=== PATIENT | female | born 1990 | race Caucasian/White ===

== ENCOUNTER 2020-05-16 12:49 | Inpatient (IN) | payer MEDICAID ==
[~2020-05-16] VITALS: Ht 170.2 cm; Wt 64.6 kg
[2020-05-16 13:40] LABS: BASOPHILS % (AUTO) 0.9 % (0.0-2.0); EOSINOPHILS % (AUTO) 1.7 % (1.0-6.0); HEMATOCRIT 37.3 % (36-46); HEMOGLOBIN 12.7 g/dL (12.0-16.0); LYMPHOCYTES # (AUTO) 2.4 K/uL (1.0-4.8); LYMPHOCYTES % (AUTO) 37.5 % (22.0-44.0); MEAN CORPUSCULAR HEMOGLOBIN 29.6 pg (26.0-34.0); MEAN CORPUSCULAR HGB CONC 34.2 G/dL (31.0-37.0); MEAN CORPUSCULAR VOLUME 87 fL (80-100); MONOCYTES # (AUTO) 0.4 K/uL (0.1-1.0); MONOCYTES % (AUTO) 5.8 % (2.0-9.0); NEUTROPHILS # (AUTO) 3.5 K/uL (1.8-7.7); NEUTROPHILS % (AUTO) 54.1 % (40.0-70.0); PLATELET COUNT (AUTO) 257 K/uL (150-450); RED BLOOD CELL COUNT(AUTO) 4.31 MIL/uL (4.00-5.20); RED CELL DISTRIBUTION WIDTH 13.2 % (11.5-14.5)
[2020-05-16 13:51] LABS: AMPHET/METH SCREEN,URINE POSITIVE (NEGATIVE); BARBITURATE SCREEN, URINE NEGATIVE (NEGATIVE); BENZODIAZEPINES SCREEN,URINE NEGATIVE (NEGATIVE); CANNABINOID SCREEN,URINE NEGATIVE (NEGATIVE); COCAINE SCREEN,URINE NEGATIVE (NEGATIVE); METHADONE SCREEN, URINE NEGATIVE (NEGATIVE); OPIATE SCREEN,URINE POSITIVE (NEGATIVE)
[2020-05-16 13:51] LABS: ANION GAP 6 mmol/L (8-16); CALCIUM, TOTAL 8.8 mg/dL (8.8-10.5); CARBON DIOXIDE 28 mmol/L (22-29); CHLORIDE 104 mmol/L (98-107); CREATININE 0.79 mg/dL (0.60-1.30); GLOMERULAR FILTR. RATE CALC > 60 mL/min (>60); GLUCOSE,RANDOM 111 mg/dL (70-110); POTASSIUM 3.6 mmol/L (3.5-5.1); SODIUM SERUM 138 mmol/L (136-145); UREA NITROGEN, BLOOD 12 mg/dL (7-18)
[2020-05-16 13:52] LABS: PHENCYCLIDINE SCREEN,URINE NEGATIVE (NEGATIVE)
[2020-05-16 13:56] LABS: ACETAMINOPHEN 25 mcg/mL (10-30); ALANINE AMINOTRANSFERASE 24 U/L (12-78); ALBUMIN 3.6 g/dL (3.4-5.0); ALKALINE PHOSPHATASE 54 U/L (46-116); ASPARTATE AMINOTRANSFERASE 15 U/L (15-37); BILIRUBIN,TOTAL 0.4 mg/dL (0.1-1.0)
[2020-05-16 14:19] LABS: SALICYLATE 0.4 mg/dL (2.8-20.0)
[2020-05-16 18:45] LABS: COVID AG,FIA SOURCE NASOPHARYNGEAL
[2020-05-16] MEDS ORDERED: ZOLPIDEM TARTRATE 10 MG TABLET PO PRN (19:00)
[2020-05-16] MEDS ORDERED: ONDANSETRON HCL 4 MG/2 ML VIAL IVP ONE (21:45)
[2020-05-17 01:55] VITALS: BP 120/82
[2020-05-17] MEDS: LORazepam 2 MG TABLET PO PRN (01:58)
[2020-05-17 06:50] LABS: CHOL/HDL RATIO 2.6 (3.9-5.7)
[2020-05-17] MEDS ORDERED: MAGNESIUM HYDROXIDE SUSPENSION 30 ML UDCUP PO PRN (07:15)
[2020-05-17] MEDS ORDERED: IBUPROFEN 400 MG TABLET PO PRN (07:15)
[2020-05-17] MEDS ORDERED: ALBUTEROL SULFATE HFA 90 MCG/PUFF 8 GM INHALER IH PRN (07:15)
[2020-05-17] MEDS ORDERED: PETROLATUM,WHITE 28 GM JELLY TP PRN (07:15)
[2020-05-17] MEDS ORDERED: DOCUSATE SODIUM 100 MG CAPSULE PO PRN (07:15)
[2020-05-17] MEDS ORDERED: MAG HYDROX/AL HYDROX/SIMETH ES 30 ML SUSPENSION UDCUP PO PRN (07:15)
[2020-05-17] MEDS ORDERED: LOPERAMIDE HCL 2 MG CAPSULE PO PRN (07:15)
[2020-05-17] MEDS ORDERED: GuaiFENesin/D-METHORPHAN [SUGAR-FREE] 200-20MG/10 ML SYRUP UDCUP PO PRN (07:15)
[2020-05-17] MEDS ORDERED: NICOTINE 14 MG/24 HOUR PATCH TD PRN (07:15)
[2020-05-17] MEDS ORDERED: ACETAMINOPHEN 325 MG TABLET PO PRN (07:15)
[2020-05-17] MEDS ORDERED: CloNIDine HCL 0.1 MG TABLET PO PRN (07:15)
[2020-05-17] MEDS ORDERED: ONDANSETRON HCL 4 MG TABLET PO PRN (07:15)
[2020-05-17 09:15] VITALS: BP 106/62
[2020-05-17 16:47] VITALS: BP 103/57
[2020-05-17] MEDS ORDERED: LORazepam 2 MG/ML VIAL ONE (18:34)
[2020-05-17] MEDS ORDERED: HALOPERIDOL LACTATE 5 MG/ML VIAL ONE (18:34)
[2020-05-17] MEDS ORDERED: DiphenhydrAMINE HCL 50 MG/ML VIAL ONE (18:34)
[2020-05-17] MEDS ORDERED: DiphenhydrAMINE HCL 50 MG/ML VIAL IM ONE (18:45)
[2020-05-17] MEDS ORDERED: HALOPERIDOL LACTATE 5 MG/ML VIAL IM ONE (18:45)
[2020-05-17] MEDS ORDERED: LORazepam 2 MG/ML VIAL IM ONE (18:45)
[2020-05-18] MEDS: SERTRALINE HCL 50 MG TABLET PO SCH (10:41)
[2020-05-18] MEDS: LORazepam 2 MG TABLET PO PRN (12:39)
[2020-05-19] MEDS: SERTRALINE HCL 50 MG TABLET PO SCH (08:10)
[2020-05-19] MEDS: LORazepam 2 MG TABLET PO PRN (08:10)
[2020-05-19] MEDS ORDERED: HALOPERIDOL LACTATE 5 MG/ML VIAL ONE (08:21)
[2020-05-19] MEDS ORDERED: DiphenhydrAMINE HCL 50 MG/ML VIAL ONE (08:21)
[2020-05-19] MEDS ORDERED: HALOPERIDOL LACTATE 5 MG/ML VIAL IM ONE (08:30)
[2020-05-19] MEDS ORDERED: LORazepam 2 MG/ML VIAL IM ONE (08:30)
[2020-05-19] MEDS ORDERED: DiphenhydrAMINE HCL 50 MG/ML VIAL IM ONE (08:30)
[2020-05-19 10:35] VITALS: BP 115/64
[2020-05-20] MEDS: LORazepam 2 MG TABLET PO PRN ×2 (07:37→19:06)
[2020-05-20] MEDS: SERTRALINE HCL 50 MG TABLET PO SCH (08:06)
[2020-05-20 08:47] VITALS: BP 122/65
[2020-05-20 16:21] VITALS: BP 104/65
[2020-05-21 08:00] VITALS: BP 101/64
[2020-05-21] MEDS: SERTRALINE HCL 50 MG TABLET PO SCH (08:34)
[2020-05-21] MEDS: HALOPERIDOL 5 MG TABLET PO PRN ×2 (08:34→15:05)
[2020-05-21] MEDS: LORazepam 2 MG TABLET PO PRN ×2 (08:34→15:05)
[2020-05-21 16:12] VITALS: BP 105/65
[2020-05-22 08:00] VITALS: BP 104/62
[2020-05-22] MEDS: HALOPERIDOL 5 MG TABLET PO PRN (08:09)
[2020-05-22] MEDS: SERTRALINE HCL 50 MG TABLET PO SCH (08:09)
[2020-05-22] MEDS: LORazepam 2 MG TABLET PO PRN ×2 (08:09→17:40)
[2020-05-22 17:50] VITALS: BP 109/76
[2020-05-23] MEDS: LORazepam 2 MG TABLET PO PRN ×3 (00:34→17:57)
[2020-05-23 08:37] VITALS: BP 94/64
[2020-05-23] MEDS: HALOPERIDOL 5 MG TABLET PO PRN (09:20)
[2020-05-23] MEDS: SERTRALINE HCL 50 MG TABLET PO SCH (09:20)
[2020-05-23 16:53] VITALS: BP 99/64
[2020-05-23 17:56] VITALS: BP 110/70
[2020-05-24 08:00] VITALS: BP 116/66
[2020-05-24] MEDS: SERTRALINE HCL 50 MG TABLET PO SCH (08:51)
[2020-05-24] MEDS: LORazepam 2 MG TABLET PO PRN (08:52)
[2020-05-24] MEDS ORDERED: SERT50TA12 PO (10:11)
== END 2020-05-24 12:15 | disposition home or self-care (01) | DRG 751 ==
LOC: EMS 12:51 → 3EI 18:48 → 3EC 05-17 18:46
DX: F33.2 Major depressive disorder, recurrent severe without psychotic features (principal); F60.3 Borderline personality disorder; Z91.5 Personal history of self-harm; F15.10 Other stimulant abuse, uncomplicated; F11.10 Opioid abuse, uncomplicated; F19.10 Other psychoactive substance abuse, uncomplicated; I95.9 Hypotension, unspecified; Z81.1 Family history of alcohol abuse and dependence; T50.902A Poisoning by unspecified drugs, medicaments and biological substances, intentional self-harm, initial encounter; Z79.899 Other long term (current) drug therapy; Y92.89 Other specified places as the place of occurrence of the external cause; Z03.818 Encounter for observation for suspected exposure to other biological agents ruled out
CPT/HCPCS: 87426; 93005; 99291; G0480; G0481; J1200; J1630; J2060; J2405

== ENCOUNTER 2021-03-21 02:50 | Emergency (ER) | payer MEDICAID ==
[~2021-03-21] VITALS: Ht 162.6 cm; Wt 65.9 kg
[~2021-03-21 02:50] MED LIST: SERT-439 PO
[2021-03-21] MEDS ORDERED: LORazepam 2 MG TABLET PO ONE (03:45)
[2021-03-21 04:20] VITALS: BP 105/53
[2021-03-21 04:32] LABS: COVID AG,FIA SOURCE NASOPHARYNGEAL
== END 2021-03-21 04:47 ==
LOC: EMS 02:51
DX: S09.90XA Unspecified injury of head, initial encounter (principal); R45.851 Suicidal ideations; F32.9 Major depressive disorder, single episode, unspecified; Z20.822 Contact with and (suspected) exposure to COVID-19; W22.8XXA Striking against or struck by other objects, initial encounter; Y93.89 Activity, other specified; Y92.89 Other specified places as the place of occurrence of the external cause; Y99.8 Other external cause status
CPT/HCPCS: 99284

== ENCOUNTER 2021-05-05 11:24 | Inpatient (IN) | payer MEDICAID ==
[~2021-05-05] VITALS: Ht 162.6 cm; Wt 70.3 kg
[2021-05-05] MEDS ORDERED: GABA-1216 PO (13:30)
[2021-05-05 14:29] LABS: AMPHET/METH SCREEN,URINE POSITIVE (NEGATIVE); BARBITURATE SCREEN, URINE NEGATIVE (NEGATIVE); BENZODIAZEPINES SCREEN,URINE NEGATIVE (NEGATIVE); CANNABINOID SCREEN,URINE NEGATIVE (NEGATIVE); COCAINE SCREEN,URINE NEGATIVE (NEGATIVE); METHADONE SCREEN, URINE NEGATIVE (NEGATIVE); OPIATE SCREEN,URINE NEGATIVE (NEGATIVE)
[2021-05-05 14:30] LABS: PHENCYCLIDINE SCREEN,URINE NEGATIVE (NEGATIVE)
[2021-05-05 14:32] LABS: BASOPHILS % (AUTO) 0.7 % (0.0-2.0); EOSINOPHILS % (AUTO) 0.3 % (1.0-6.0); HEMATOCRIT 40.5 % (36-46); HEMOGLOBIN 13.1 g/dL (12.0-16.0); LYMPHOCYTES # (AUTO) 2.3 K/uL (1.0-4.8); LYMPHOCYTES % (AUTO) 28.2 % (22.0-44.0); MEAN CORPUSCULAR HEMOGLOBIN 28.8 pg (26.0-34.0); MEAN CORPUSCULAR HGB CONC 32.4 G/dL (31.0-37.0); MEAN CORPUSCULAR VOLUME 89 fL (80-100); MONOCYTES # (AUTO) 0.8 K/uL (0.1-1.0); MONOCYTES % (AUTO) 10.2 % (2.0-9.0); NEUTROPHILS # (AUTO) 4.9 K/uL (1.8-7.7); NEUTROPHILS % (AUTO) 60.6 % (40.0-70.0); PLATELET COUNT (AUTO) 247 K/uL (150-450); RED BLOOD CELL COUNT(AUTO) 4.56 MIL/uL (4.00-5.20); RED CELL DISTRIBUTION WIDTH 14.8 % (11.5-14.5)
[2021-05-05 14:56] LABS: ANION GAP 11 mmol/L (8-16); CALCIUM, TOTAL 8.9 mg/dL (8.8-10.5); CARBON DIOXIDE 26 mmol/L (22-29); CHLORIDE 106 mmol/L (98-107); CREATININE 0.78 mg/dL (0.60-1.30); GLOMERULAR FILTR. RATE CALC > 60 mL/min (>60); GLUCOSE,RANDOM 82 mg/dL (70-110); POTASSIUM 3.9 mmol/L (3.5-5.1); SODIUM SERUM 143 mmol/L (136-145); UREA NITROGEN, BLOOD 14 mg/dL (7-18)
[2021-05-05 15:02] LABS: ALANINE AMINOTRANSFERASE 32 U/L (12-78); ALBUMIN 4.3 g/dL (3.4-5.0); ALKALINE PHOSPHATASE 57 U/L (46-116); ASPARTATE AMINOTRANSFERASE 26 U/L (15-37); BILIRUBIN,TOTAL 0.5 mg/dL (0.1-1.0); TOTAL PROTEIN, SERUM 7.8 g/dL (6.4-8.2)
[2021-05-05 17:08] LABS: COVID AG,FIA SOURCE NASOPHARYNGEAL
[2021-05-05 19:41] VITALS: BP 106/59
[2021-05-05] MEDS: LORazepam 2 MG TABLET PO PRN (22:04)
[2021-05-06 00:59] VITALS: BP 104/62
[2021-05-06 08:19] LABS: CHOL/HDL RATIO 2.3 (3.9-5.7)
[2021-05-06 08:23] VITALS: BP 100/60
[2021-05-06] MEDS: LORazepam 2 MG TABLET PO PRN (09:30)
[2021-05-06] MEDS ORDERED: ACETAMINOPHEN 325 MG TABLET PO PRN (11:00)
[2021-05-06] MEDS ORDERED: LOPERAMIDE HCL 2 MG CAPSULE PO PRN (11:00)
[2021-05-06] MEDS ORDERED: GuaiFENesin/D-METHORPHAN [SUGAR-FREE] 200-20MG/10 ML SYRUP UDCUP PO PRN (11:00)
[2021-05-06] MEDS ORDERED: MAGNESIUM HYDROXIDE SUSPENSION 30 ML UDCUP PO PRN (11:00)
[2021-05-06] MEDS ORDERED: MAG HYDROX/AL HYDROX/SIMETH ES 30 ML SUSPENSION UDCUP PO PRN (11:00)
[2021-05-06] MEDS ORDERED: PETROLATUM,WHITE 28 GM JELLY TP PRN (11:00)
[2021-05-06] MEDS ORDERED: NICOTINE 14 MG/24 HOUR PATCH TD PRN (11:00)
[2021-05-06] MEDS ORDERED: ALBUTEROL SULFATE HFA 90 MCG/PUFF 8 GM INHALER IH PRN (11:00)
[2021-05-06] MEDS ORDERED: ONDANSETRON HCL 4 MG TABLET PO PRN (11:00)
[2021-05-06] MEDS ORDERED: IBUPROFEN 400 MG TABLET PO PRN (11:00)
[2021-05-06] MEDS ORDERED: CloNIDine HCL 0.1 MG TABLET PO PRN (11:00)
[2021-05-06] MEDS ORDERED: DOCUSATE SODIUM 100 MG CAPSULE PO PRN (11:00)
[2021-05-06] MEDS: HALOPERIDOL 5 MG TABLET PO PRN (12:23)
[2021-05-06] MEDS ORDERED: HydrOXYzine PAMOATE 50 MG CAPSULE PO PRN (13:15)
[2021-05-06] MEDS: SERTRALINE HCL 50 MG TABLET PO SCH (14:23)
[2021-05-06 15:13] VITALS: BP 110/60
[2021-05-06 16:22] VITALS: BP 113/66
[2021-05-07 00:08] VITALS: BP 113/75
[2021-05-07 08:08] VITALS: BP 105/65
[2021-05-07] MEDS: SERTRALINE HCL 50 MG TABLET PO SCH (08:11)
[2021-05-07] MEDS: LORazepam 2 MG TABLET PO PRN ×2 (08:11→14:14)
[2021-05-07 09:01] VITALS: BP 108/65
[2021-05-07] MEDS ORDERED: HALOPERIDOL LACTATE 5 MG/ML VIAL IM ONE (15:45)
[2021-05-07] MEDS ORDERED: LORazepam 2 MG/ML VIAL IM ONE (15:45)
[2021-05-07] MEDS ORDERED: DiphenhydrAMINE HCL 50 MG/ML VIAL IM ONE (15:45)
[2021-05-08] MEDS: DIVALPROEX SODIUM 500 MG DR TABLET PO SCH ×2 (09:43→16:14)
[2021-05-08] MEDS: SERTRALINE HCL 50 MG TABLET PO SCH (09:43)
[2021-05-08] MEDS ORDERED: DiphenhydrAMINE HCL 50 MG/ML VIAL IM ONE (16:45)
[2021-05-08] MEDS ORDERED: HALOPERIDOL LACTATE 5 MG/ML VIAL IM ONE (16:45)
[2021-05-08] MEDS ORDERED: DiphenhydrAMINE HCL 50 MG/ML VIAL ONE (16:46)
[2021-05-08] MEDS ORDERED: HALOPERIDOL LACTATE 5 MG/ML VIAL ONE (16:46)
[2021-05-08] MEDS: LORazepam 2 MG TABLET PO PRN (16:52)
[2021-05-08] MEDS: HALOPERIDOL 5 MG TABLET PO PRN (16:52)
[2021-05-09 06:53] VITALS: BP 100/64
[2021-05-09] MEDS: SERTRALINE HCL 50 MG TABLET PO SCH (09:35)
[2021-05-09] MEDS: DIVALPROEX SODIUM 500 MG DR TABLET PO SCH ×2 (09:35→20:19)
[2021-05-09] MEDS: LORazepam 2 MG TABLET PO PRN ×2 (11:09→20:16)
[2021-05-09] MEDS: HALOPERIDOL 5 MG TABLET PO PRN (11:10)
[2021-05-09] MEDS: ZOLPIDEM TARTRATE 10 MG TABLET PO PRN (21:12)
[2021-05-10 07:36] LABS: COVID AG,FIA SOURCE NASOPHARYNGEAL
[2021-05-10 08:21] VITALS: BP 109/61
[2021-05-10] MEDS: DIVALPROEX SODIUM 500 MG DR TABLET PO SCH ×2 (09:06→16:26)
[2021-05-10] MEDS: LORazepam 2 MG TABLET PO PRN ×2 (09:06→16:26)
[2021-05-10] MEDS: SERTRALINE HCL 50 MG TABLET PO SCH (09:06)
[2021-05-10] MEDS: HALOPERIDOL 5 MG TABLET PO PRN ×2 (09:06→18:18)
[2021-05-10 16:15] VITALS: BP 110/68
[2021-05-10] MEDS: ZOLPIDEM TARTRATE 10 MG TABLET PO PRN (19:33)
[2021-05-11 06:40] VITALS: BP 104/61
[2021-05-11] MEDS: SERTRALINE HCL 50 MG TABLET PO SCH (08:37)
[2021-05-11] MEDS: DIVALPROEX SODIUM 500 MG DR TABLET PO SCH (08:37)
[2021-05-11] MEDS: LORazepam 2 MG TABLET PO PRN (08:37)
[2021-05-11 08:50] VITALS: BP 100/60
[2021-05-11] MEDS: HALOPERIDOL 5 MG TABLET PO PRN (10:28)
[2021-05-11] MEDS ORDERED: SERT-439 PO (11:47)
[2021-05-11] MEDS ORDERED: DIVA-112 PO (11:47)
== END 2021-05-11 12:50 | disposition short-term general hospital (02) | DRG 751 ==
LOC: EMS 11:24 → B3A 16:32 → B2S 18:22
PROVIDERS: ADMIT Psychiatry & Neurology Psychiatry; ATTEND Psychiatry & Neurology Psychiatry
DX: F33.2 Major depressive disorder, recurrent severe without psychotic features (principal); R45.851 Suicidal ideations; F15.20 Other stimulant dependence, uncomplicated; F17.200 Nicotine dependence, unspecified, uncomplicated; F60.3 Borderline personality disorder; G47.00 Insomnia, unspecified; Z20.822 Contact with and (suspected) exposure to COVID-19; F41.9 Anxiety disorder, unspecified; Z79.899 Other long term (current) drug therapy; Z91.51 Personal history of suicidal behavior
CPT/HCPCS: 80053; 80061; 85025; 99285; G0480; J1200; J1630; J2060

== ENCOUNTER 2021-12-20 09:12 | Inpatient (IN) | payer MEDICAID ==
[~2021-12-20] VITALS: Ht 162.6 cm; Wt 66.8 kg
[~2021-12-20 09:12] MED LIST changes: +HYDR-4584 PO; +LAMO25TA66 PO; +MELA5TAB40 PO; +NALT50TA PO; +OMEG-108 PO; -SERT-439 PO; +SERT-440 PO
[2021-12-20] MEDS ORDERED: SODIUM CHLORIDE 0.9% 1,000 ML IV ONE ×2 (09:30→12:45)
[2021-12-20 09:46] LABS: ANION GAP 7 mmol/L (8-16); CALCIUM, TOTAL 8.8 mg/dL (8.8-10.5); CARBON DIOXIDE 26 mmol/L (22-29); CHLORIDE 105 mmol/L (98-107); CREATININE 0.87 mg/dL (0.60-1.30); GLOMERULAR FILTR. RATE CALC > 60 mL/min (>60); GLUCOSE,RANDOM 91 mg/dL (70-110); POTASSIUM 3.6 mmol/L (3.5-5.1); SODIUM SERUM 138 mmol/L (136-145); UREA NITROGEN, BLOOD 8 mg/dL (7-18)
[2021-12-20 09:53] LABS: B-TYPE NATRIURETIC PEPTIDE 11 pg/mL (0-100); BASOPHILS % (AUTO) 0.4 % (0.0-2.0); EOSINOPHILS % (AUTO) 0.1 % (1.0-6.0); HEMATOCRIT 37.8 % (36-46); HEMOGLOBIN 12.8 g/dL (12.0-16.0); LYMPHOCYTES # (AUTO) 1.4 K/uL (1.0-4.8); LYMPHOCYTES % (AUTO) 23.4 % (22.0-44.0); MEAN CORPUSCULAR HEMOGLOBIN 29.6 pg (26.0-34.0); MEAN CORPUSCULAR HGB CONC 33.8 G/dL (31.0-37.0); MEAN CORPUSCULAR VOLUME 88 fL (80-100); MONOCYTES # (AUTO) 0.5 K/uL (0.1-1.0); MONOCYTES % (AUTO) 8.4 % (2.0-9.0); NEUTROPHILS # (AUTO) 4.2 K/uL (1.8-7.7); NEUTROPHILS % (AUTO) 67.7 % (40.0-70.0); PLATELET COUNT (AUTO) 262 K/uL (150-450); RED BLOOD CELL COUNT(AUTO) 4.32 MIL/uL (4.00-5.20)
[2021-12-20 09:55] LABS: INR 1.2 (0.9-1.1); PROTHROMBIN TIME 12.7 SEC (9.4-11.6)
[2021-12-20 09:57] LABS: ALANINE AMINOTRANSFERASE 23 U/L (12-78); ALBUMIN 4.1 g/dL (3.4-5.0); ALKALINE PHOSPHATASE 52 U/L (46-116); ASPARTATE AMINOTRANSFERASE 17 U/L (15-37); BILIRUBIN,TOTAL 0.4 mg/dL (0.1-1.0); CREATINE KINASE, TOTAL ONLY 160 U/L (26-192); HCG,QUANTITATIVE < 1 mIU/mL (0-6); PHOSPHORUS 3.1 mg/dL (2.5-4.9); TOTAL PROTEIN, SERUM 6.9 g/dL (6.4-8.2)
[2021-12-20 09:58] LABS: ACETAMINOPHEN < 2 mcg/mL (10-30)
[2021-12-20 10:13] LABS: COVID AG,FIA SOURCE NASOPHARYNGEAL
[2021-12-20] MEDS ORDERED: ONDANSETRON HCL 4 MG/2 ML VIAL IVP PRN ×2 (12:00→12:45)
[2021-12-20] MEDS ORDERED: ACETAMINOPHEN 325 MG TABLET PO PRN ×2 (12:00→12:45)
[2021-12-20] MEDS ORDERED: 0.9% SODIUM CHLORIDE 10 ML SYRINGE IVP PRN (12:00)
[2021-12-20] MEDS ORDERED: ZOLPIDEM TARTRATE 5 MG TABLET PO PRN (12:45)
[2021-12-20] MEDS ORDERED: MORPHINE SULFATE 2 MG/ML SYRINGE IVP PRN (12:45)
[2021-12-20] MEDS ORDERED: BISACODYL 10 MG RECTAL RECTAL SUPPOSITORY PR PRN (12:45)
[2021-12-20] MEDS ORDERED: MAGNESIUM HYDROXIDE SUSPENSION 30 ML UDCUP PO PRN (12:45)
[2021-12-20] MEDS ORDERED: HYDROCODONE/ACETAMINOPHEN 5-325 MG TABLET PO PRN (12:45)
[2021-12-20 13:50] LABS: ANION GAP 6 mmol/L (8-16); CALCIUM, TOTAL 8.1 mg/dL (8.8-10.5); CARBON DIOXIDE 26 mmol/L (22-29); CHLORIDE 108 mmol/L (98-107); CREATININE 0.65 mg/dL (0.60-1.30); GLOMERULAR FILTR. RATE CALC > 60 mL/min (>60); GLUCOSE,RANDOM 83 mg/dL (70-110); POTASSIUM 3.6 mmol/L (3.5-5.1); SODIUM SERUM 140 mmol/L (136-145); UREA NITROGEN, BLOOD 8 mg/dL (7-18)
[2021-12-20] MEDS ORDERED: HEPARIN SODIUM,PORCINE 5,000 UNITS/ML VIAL SQ SCH (16:00)
[2021-12-20 16:51] LABS: APPEARANCE,URINE CLEAR (CLEAR); BILIRUBIN,URINE NEGATIVE (NEGATIVE); GLUCOSE, URINE (UA) NEGATIVE (NEGATIVE); LEUKOCYTE ESTERASE ,URINE NEGATIVE (NEGATIVE); NITRATE,URINE NEGATIVE (NEGATIVE); OCCULT BLOOD,URINE NEGATIVE (NEGATIVE); PH,URINE 6.5 (5.0-8.0); PROTEIN,URINE NEGATIVE (NEGATIVE); SPECIFIC GRAVITIY, URINE 1.012 (1.003-1.030); UROBILINOGEN,URINE <=1.0 mg/dL (<=1.0)
[2021-12-20 16:57] LABS: AMPHET/METH SCREEN,URINE POSITIVE (NEGATIVE); BARBITURATE SCREEN, URINE NEGATIVE (NEGATIVE); BENZODIAZEPINES SCREEN,URINE NEGATIVE (NEGATIVE); CANNABINOID SCREEN,URINE NEGATIVE (NEGATIVE); COCAINE SCREEN,URINE NEGATIVE (NEGATIVE); METHADONE SCREEN, URINE NEGATIVE (NEGATIVE); OPIATE SCREEN,URINE NEGATIVE (NEGATIVE); PHENCYCLIDINE SCREEN,URINE NEGATIVE (NEGATIVE)
[2021-12-20 17:19] LABS: ANION GAP 10 mmol/L (8-16); CALCIUM, TOTAL 8.6 mg/dL (8.8-10.5); CARBON DIOXIDE 24 mmol/L (22-29); CHLORIDE 106 mmol/L (98-107); CREATININE 0.66 mg/dL (0.60-1.30); GLOMERULAR FILTR. RATE CALC > 60 mL/min (>60); GLUCOSE,RANDOM 74 mg/dL (70-110); POTASSIUM 3.5 mmol/L (3.5-5.1); SODIUM SERUM 140 mmol/L (136-145); UREA NITROGEN, BLOOD 7 mg/dL (7-18)
[2021-12-20 17:23] LABS: SALICYLATE 2.4 mg/dL (2.8-20.0)
[2021-12-20 17:25] LABS: ACETAMINOPHEN < 2 mcg/mL (10-30); ALANINE AMINOTRANSFERASE 22 U/L (12-78); ALBUMIN 3.7 g/dL (3.4-5.0); ALKALINE PHOSPHATASE 49 U/L (46-116); ASPARTATE AMINOTRANSFERASE 17 U/L (15-37); BILIRUBIN,TOTAL 0.4 mg/dL (0.1-1.0); TOTAL PROTEIN, SERUM 6.5 g/dL (6.4-8.2)
[2021-12-20] MEDS ORDERED: ZOLPIDEM TARTRATE 10 MG TABLET PO PRN (19:30)
[2021-12-20] MEDS ORDERED: DiphenhydrAMINE HCL 50 MG/ML VIAL ONE (20:23)
[2021-12-20] MEDS ORDERED: LORazepam 2 MG/ML VIAL ONE (20:23)
[2021-12-20] MEDS ORDERED: HALOPERIDOL LACTATE 5 MG/ML VIAL ONE (20:23)
[2021-12-20] MEDS ORDERED: LORazepam 2 MG/ML VIAL IM ONE (20:45)
[2021-12-20] MEDS ORDERED: DiphenhydrAMINE HCL 50 MG/ML VIAL IM ONE (20:45)
[2021-12-20] MEDS ORDERED: HALOPERIDOL LACTATE 5 MG/ML VIAL IM ONE (20:45)
[2021-12-20] MEDS ORDERED: DOCUSATE SODIUM 100 MG CAPSULE PO SCH (21:00)
[2021-12-20 22:21] VITALS: BP 101/60
[2021-12-20 22:28] VITALS: BP 101/60
[2021-12-21] MEDS: NICOTINE 7 MG/24 HOUR PATCH TD SCH (08:22)
[2021-12-21] MEDS ORDERED: PANTOPRAZOLE SODIUM 40 MG DR TABLET PO SCH (09:00)
[2021-12-21] MEDS: SERTRALINE HCL 100 MG TABLET PO SCH (20:02)
[2021-12-21] MEDS: LamoTRIgine 25 MG TABLET PO SCH (20:02)
[2021-12-22] MEDS: NICOTINE 7 MG/24 HOUR PATCH TD SCH (09:00)
[2021-12-22] MEDS: GABAPENTIN 300 MG CAPSULE PO SCH ×3 (09:57→16:12)
[2021-12-22] MEDS: NALTREXONE HCL 50 MG TABLET PO SCH (09:57)
[2021-12-22] MEDS: LORazepam 2 MG TABLET PO PRN (09:57)
[2021-12-22] MEDS: HALOPERIDOL 5 MG TABLET PO PRN (09:57)
[2021-12-22 13:41] VITALS: BP 100/60
[2021-12-22 16:31] VITALS: BP 107/65
[2021-12-22] MEDS: LamoTRIgine 25 MG TABLET PO SCH (20:06)
[2021-12-22] MEDS: SERTRALINE HCL 100 MG TABLET PO SCH (20:06)
[2021-12-23] MEDS: NALTREXONE HCL 50 MG TABLET PO SCH (07:50)
[2021-12-23] MEDS: LORazepam 2 MG TABLET PO PRN (07:50)
[2021-12-23] MEDS: NICOTINE 7 MG/24 HOUR PATCH TD SCH (07:50)
[2021-12-23] MEDS: GABAPENTIN 300 MG CAPSULE PO SCH ×2 (07:50→12:34)
[2021-12-23] MEDS: HALOPERIDOL 5 MG TABLET PO PRN (07:50)
[2021-12-23 08:25] VITALS: BP 101/50
[2021-12-23] MEDS ORDERED: GABA-1181 PO (11:38)
[2021-12-23] MEDS ORDERED: SERT-440 PO (11:38)
[2021-12-23] MEDS ORDERED: LAMO25TA66 PO (11:38)
[2021-12-23] MEDS ORDERED: NALT50TA PO (11:38)
== END 2021-12-23 13:00 | disposition home or self-care (01) | DRG 817 ==
LOC: EMS 09:12 → 3EC 19:51 → EMS 21:05
PROVIDERS: ADMIT Psychiatry & Neurology Child & Adolescent Psychiatry; ATTEND Psychiatry & Neurology Child & Adolescent Psychiatry
DX: T50.992A Poisoning by other drugs, medicaments and biological substances, intentional self-harm, initial encounter (principal); F33.2 Major depressive disorder, recurrent severe without psychotic features; R45.851 Suicidal ideations; F15.90 Other stimulant use, unspecified, uncomplicated; Z20.822 Contact with and (suspected) exposure to COVID-19; F41.9 Anxiety disorder, unspecified; F17.210 Nicotine dependence, cigarettes, uncomplicated; F19.10 Other psychoactive substance abuse, uncomplicated; Y92.89 Other specified places as the place of occurrence of the external cause
CPT/HCPCS: 80048; 80053; 81003; 82550; 83735; 83880; 84100; 84484; 84702; 85025; 85610; 85730; 93005; 99285; G0480; G0481; J1200; J1630; J1644; J2060